=== PATIENT | female | born 1985 | race Caucasian/White ===

== ENCOUNTER 2018-05-23 17:26 | Emergency (ER) | payer MEDICAID, OTHER ==
--- NOTE | 2018-05-23 17:35 | EDPHY ---
General Time Seen by Provider: 05/23/18 17:30 Narrative: CHIEF COMPLAINT: "chest pressure, anxious, can't stop breathing fast" HISTORY OF PRESENT ILLNESS: Patient presents with complaints of chest pressure, anxious, and can't stop breathing fast. Chest pressure was earlier today around 12. Remainder of symptoms have been constant throughout the day otherwise. She has no chest pain at this time. She is feeling very anxious, shaking, having difficulty slowing her breathing. He she has had some tingling of the lips and hands. She has had some "shaking of the hands."She states that she 1st drove herself to "somewhere in [place]" for help, and then they recommended that she present to the crisis Center for help with her anxiety. She reportedly became very anxious steroid lost consciousness due to hyperventilation per bystanders. The patient has no recollection of this. She denies feeling suicidal but has felt very anxious. He denies headache, abdominal pain or urinary complaints. She denies any recent fever chills per She has difficulty providing any modifying factors for this. REVIEW OF SYSTEMS: Ten systems reviewed and are negative unless otherwise noted in the HPI PCP: None SPECIALISTS: None PAST MEDICAL HISTORY: Denies any medical diagnoses PAST SURGICAL HISTORY: Denies any surgical diagnoses SOCIAL HISTORY: Admits to occasional tobacco use. Denies alcohol use. Admits to occasional marijuana use. Works as a dental assistant professor of biology in [place] FAMILY HISTORY: Noncontributory EXAMINATION General Appearance: Alert, no distress, anxious and restless Head: normocephalic, atraumatic Eyes: Pupils equal and round, no conjunctival pallor or injection ENT, Mouth: Mucous membranes moist Neck: Normal inspection, supple, non-tender Respiratory: Hyperventilating with clear lungs. Cardiovascular: Regular rate and rhythm. No murmur Gastrointestinal: Abdomen is soft and nontender Back: non-tender, no bony abnormalities Neurological: GCS 15. A&O, fidgeting and tremulous. No pronator drift. Skin: Warm and dry, no rash Extremities: Nontender, no pedal edema. Symmetric range of motion of the extremities. Carpopedal spasms noted Psychiatric: Anxious mood and affect. Denies suicidal ideation. DIFFERENTIAL DIAGNOSES: Including but not limited to anxiety reaction, ACS, pneumonia, PE, pleurisy, pseudo-seizure, seizure, syncope MDM: 5:35 p.m. Likely anxiety reaction as the patient is very anxious appearing, exhibiting carpopedal spasms, hyperventilating, emotionally labile and her conversation changes dependent on caregiver at bedside. vital signs very from normal heart rate to mild tachycardia. Her oxygenation is well within normal limits. She is afebrile. She denies any alcohol or illicit substance use today. Occasional marijuana use endorse. I have ordered IV fluid and Ativan and will recheck shortly. I feel that anxiety is highly likely, less likely ACS or PE. She is perc negative. 6:10 p.m. Patient re-evaluated. She is feeling much better. She is more relaxed. Her heart rate has decreased. She says the pressure that she was feeling on her chest is nearly completely resolved. She does describe more carpopedal spasms, numbness and tingling of the lips earlier today. She now tells me that she thinks this was in fact a panic attack and she was sent home from work because of it. She is feeling much better and would like to rest further. I read the chest x-ray, and the radiologist has read this as no acute findings. 7:05 p.m. Patient re-evaluated. She is feeling significantly better. Chest pressure has resolved. She is very somnolent but wakes easily. She has received 2 mg of IV Ativan. We discuss outpatient management with a new primary care physician. I provided the on-call primary care physician information for. I have also provided the [facility] information at her request. We discussed return here for any return of symptoms, thoughts of self-harm or return of her chest pain. I have answered all her questions. She is contacted a ride to come pick her up and take her home for the emergency department. She will be discharged home stable condition. SUPERVISION: Patient was independently examined, but I discussed the case with my secondary supervising physician Dr. Vitale - Diagnostics Imaging Results: Imaging Impressions Chest X-Ray 05/23/18 17:50 Impression: No acute cardiopulmonary process. - Objective Vital Signs: Initial Vital Signs Temperature (C) 98.1 F 05/23/18 17:30 Heart Rate 82 05/23/18 17:30 Respiratory Rate 16 05/23/18 17:30 Blood Pressure 115/81 H 05/23/18 17:30 O2 Sat (%) 100 05/23/18 17:30 O2 Delivery Mode Room Air Laboratory Results: Laboratory Results 05/23/18 17:45 05/23/18 17:45 05/23/18 05/23/18 05/23/18 17:45 17:45 17:45 WBC RBC Hgb Hct MCV MCH MCHC RDW Plt Count MPV Neut % (Auto) Lymph % (Auto) Slope % (Auto) Eos % (Auto) Baso % (Auto) Nucleat RBC Rel Count Absolute Neuts (auto) Absolute Lymphs (auto) Absolute Monos (auto) Absolute Eos (auto) Absolute Basos (auto) Absolute Nucleated RBC Immature Gran % Immature Gran # Sodium Potassium Chloride Carbon Dioxide Anion Gap BUN Creatinine Estimated GFR Glucose Calcium Phosphorus Troponin I < 0.012 ng/mL ng/mL (0.000-0.034) Beta HCG, Qual NEGATIVE Urine Opiates Screen NEGATIVE (NEGATIVE) Urine Barbiturates NEGATIVE (NEGATIVE) Ur Phencyclidine Scrn NEGATIVE (NEGATIVE) Ur Amphetamine Screen NEGATIVE (NEGATIVE) U Benzodiazepines Scrn NEGATIVE (NEGATIVE) Urine Cocaine Screen NEGATIVE (NEGATIVE) U Marijuana (THC) Screen NON-NEGATIVE H (NEGATIVE) Ethyl Alcohol 05/23/18 05/23/18 17:45 17:45 WBC 8.33 10^3/uL 10^3/uL (3.80-9.50) RBC 4.92 10^6/uL 10^6/uL (4.18-5.33) Hgb 13.7 g/dL g/dL (12.6-16.3) Hct 40.9 % % (38.0-47.0) MCV 83.1 fL fL (81.5-99.8) MCH 27.8 pg L pg (27.9-34.1) MCHC 33.5 g/dL g/dL (32.4-36.7) RDW 15.0 % % (11.5-15.2) Plt Count 357 10^3/uL 10^3/uL (150-400) MPV 10.3 fL fL (8.7-11.7) Neut % (Auto) 64.7 % % (39.3-74.2) Lymph % (Auto) 30.3 % % (15.0-45.0) Slope % (Auto) 4.1 % L % (4.5-13.0) Eos % (Auto) 0.2 % L % (0.6-7.6) Baso % (Auto) 0.5 % % (0.3-1.7) Nucleat RBC Rel Count 0.0 % % (0.0-0.2) Absolute Neuts (auto) 5.39 10^3/uL 10^3/uL (1.70-6.50) Absolute Lymphs (auto) 2.52 10^3/uL 10^3/uL (1.00-3.00) Absolute Monos (auto) 0.34 10^3/uL 10^3/uL (0.30-0.80) Absolute Eos (auto) 0.02 10^3/uL L 10^3/uL (0.03-0.40) Absolute Basos (auto) 0.04 10^3/uL 10^3/uL (0.02-0.10) Absolute Nucleated RBC 0.00 10^3/uL 10^3/uL (0-0.01) Immature Gran % 0.2 % % (0.0-1.1) Immature Gran # 0.02 10^3/uL 10^3/uL (0.00-0.10) Sodium 144 mEq/L mEq/L (135-145) Potassium 4.1 mEq/L mEq/L (3.3-5.0) Chloride 105 mEq/L mEq/L (97-110) Carbon Dioxide 19 mEq/l L mEq/l (22-31) Anion Gap 20 mEq/L H mEq/L (8-16) BUN 8 mg/dL mg/dL (7-23) Creatinine 0.7 mg/dL mg/dL (0.6-1.0) Estimated GFR > 60 Glucose 94 mg/dL mg/dL (70-100) Calcium 10.8 mg/dL H mg/dL (8.5-10.4) Phosphorus 2.4 mg/dL L mg/dL (2.5-4.5) Troponin I Beta HCG, Qual Urine Opiates Screen Urine Barbiturates Ur Phencyclidine Scrn Ur Amphetamine Screen U Benzodiazepines Scrn Urine Cocaine Screen U Marijuana (THC) Screen Ethyl Alcohol < 10 mg/dL mg/dL (0-10) Medications Given: Discontinued Medications Sodium Chloride (Ns) 1,000 mls @ 0 mls/hr IV ONCE ONE PRN Reason: Wide Open Stop: 05/23/18 17:40 Last Admin: 05/23/18 17:41 Dose: 1,000 mls Lorazepam (Ativan Injection) 1 mg IVP EDNOW ONE Stop: 05/23/18 17:40 Last Admin: 05/23/18 17:41 Dose: 1 mg Departure - Departure Disposition: Home, Routine, Self-Care Clinical Impression: Anxiety reaction Condition: Good Instructions: Anxiety (ED), Anxiolysis in Adults (ED) Additional Instructions: 1. Follow up with the outpatient primary care physician that I have provided information for 2. Follow up with [facility] outpatient as needed 3. Return here for any return of your chest pain or pressure Referrals: Mal Fabian MD [Medical Doctor] - As per Instructions [facility],. [Clinic] - As per Instructions Stand Alone Forms: Work Excuse
[2018-05-23] MEDS ORDERED: LORazepam 2 MG/ML INJ ONE (17:36)
[2018-05-23] MEDS ORDERED: NS 1,000 ML IV ONE (17:39)
[2018-05-23] MEDS ORDERED: LORazepam 2 MG/ML INJ IVP ONE (17:39)
[2018-05-23 18:12] LABS: PLATELET COUNT 357 10^3/uL (150-400)
--- NOTE | 2018-05-23 18:51 | CPEKG ---
Heart Rate: 74 RR Interval: 811 P-R Interval: 152 QRSD Interval: 82 QT Interval: 412 QTC Interval: 457 P Willow: 67 QRS Willow: 33 T Wave Willow: 42 EKG Severity - NORMAL ECG - EKG Impression: SINUS RHYTHM Electronically Signed By: Ezra Vitale 23-May-2018 20:37:54
[2018-05-23 19:14] VITALS: BP 98/69
== END 2018-05-23 22:49 | disposition home or self-care (01) ==
LOC: EDUNIT# → EEVIPCON 17:26
DX: F41.1 Generalized anxiety disorder (principal)
CPT/HCPCS: 71045; 93005; 96374; 99285; J2060; 80305; G0480